=== PATIENT | female | born 1955 | race Caucasian/White ===

== ENCOUNTER → 2017-05-26 | Outpatient (CLI) | payer BC ==
--- NOTE | 2017-05-26 07:57 | US ---
EXAMINATION TYPE: US abdomen complete DATE OF EXAM: 05/26/2017 COMPARISON: NONE CLINICAL HISTORY: K83.8 Biliary Dyskinesia. Patient states getting lots of heartburn and epigastric p ain. Can be brought upon with acidic or greasy foods. NPO. EXAM MEASUREMENTS: Liver Length: 14.3 cm Gallbladder Wall: 0.2 cm 0. CBD: 0.6 cm CHD: 0.3 cm Spleen: 9.6 cm Right Kidney: 9.1 x 3.7 x 3.7 cm Left Kidney: 8.5 x 4.5 x 4.9 cm Pancreas: appears echogenic Liver: wnl Gallbladder: wnl, fold seen Evidence for sonographic Canales's sign: neg CBD: wnl CHD: wnl Spleen: wnl Right Kidney: wnl Left Kidney: wnl Upper IVC: wnl Abd Aorta: No AAA identified IMPRESSION: 1. Normal abdomen ultrasound
--- NOTE | 2017-05-26 13:36 | MM ---
Reason for exam: screening (asymptomatic). Last mammogram was performed 2 years and 6 months ago. History: Patient is postmenopausal. Physical Findings: A clinical breast exam by your physician is recommended on an annual basis and results should be correlated with mammographic findings. MG Screening Mammo w CAD Bilateral CC and MLO view(s) were taken. Prior study comparison: November 15, 2014, bilateral MG screening mammo w CAD. There are scattered fibroglandular densities. Finding: There are typically benign calcifications in the right breast. No significant changes in finding since November 15, 2014. ASSESSMENT: Benign, BI-RAD 2 RECOMMENDATION: Routine screening mammogram of both breasts in 1 year.
== END | disposition home or self-care (01) ==
LOC: RADUSWWP 06:56
PROVIDERS: ATTEND Family Medicine
DX: Z12.31 Encounter for screening mammogram for malignant neoplasm of breast (principal); K83.8 Other specified diseases of biliary tract
CPT/HCPCS: 76700; G0202

== ENCOUNTER → 2017-10-21 | Outpatient (CLI) | payer BC ==
--- NOTE | 2017-10-21 15:24 | NM ---
EXAMINATION TYPE: NM hepatobiliary w EF DATE OF EXAM: 10/21/2017 COMPARISON: EXAMINATION TYPE: NM hepatobiliary w EF DATE OF EXAM: 10/21/2017 COMPARISON: NONE HISTORY: Pain TECHNIQUE: After the intravenous administration of 5.13 mCi Tc 99m Mebrofenin hepatobiliary scintigra phy is performed. Immediate images post injection. FINDINGS: There is satisfactory initial accumulation of tracer by the liver. The gallbladder is visualized wit hin 10 minutes. The small bowel activity is noted within 20 minutes. At one hour 8 ounces of oral e nsure plus is given to mimic CCK and gallbladder ejection fraction is calculated at 74 %, in the norm al range. Therefore there is no scintigraphic evidence of cystic or common bile duct obstruction to suggest acute cholecystitis or gallbladder dyskinesia. IMPRESSION: Exam is within normal limits.
== END | disposition home or self-care (01) ==
LOC: RADNMMAIN 12:45
PROVIDERS: ATTEND Physician Assistant Medical
DX: R10.11 Right upper quadrant pain (principal); R10.13 Epigastric pain; K21.9 Gastro-esophageal reflux disease without esophagitis
CPT/HCPCS: 78226; A9537

== ENCOUNTER → 2017-11-11 | Outpatient (CLI) | payer BC ==
--- NOTE | 2017-11-11 13:50 | CT ---
EXAMINATION TYPE: CT abdomen w con DATE OF EXAM: 11/11/2017 COMPARISON: NONE HISTORY: 62-year-old female Upper abdominal pain TECHNIQUE: Contiguous axial scanning of the abdomen and pelvis following administration of 100 ml Omn ipaque 300 IV contrast. Delayed images through the kidneys and coronal/sagittal reconstructions perf ormed. CT DLP: 426.40 mGycm Automated exposure control for dose reduction was used. FINDINGS: Heart is normal size without pericardial effusion. Lung bases clear without pleural effusion. Tiny hiatal hernia. No focal liver lesion or biliary ductal dilatation. Portal venous system is patent. Gallbladder, adrenal glands, kidneys, spleen with hilar splenule, and pancreas appear within normal l imits. Tiny fatty umbilical hernia. Mild atherosclerotic calcifications within the infrarenal abdominal aorta and iliac arteries. No aneu rysm. No mesenteric or retroperitoneal lymphadenopathy. No dilated small bowel, free fluid, or free air. Oral contrast has progressed to the hepatic flexure. There is scattered mild stool. No pericolonic in flammatory change. Pelvis not imaged. Bones: Facet arthropathy mid to lower lumbar spine with grade 1 anterolisthesis at L3-L4 and grade 1 retrolisthesis at L1-L2. No osseous destructive process. IMPRESSION: NO ACUTE INFLAMMATORY PROCESS IDENTIFIED IN THE ABDOMEN TO EXPLAIN THE PATIENT'S SYMPTOMS. TINY HIATAL HERNIA.
== END | disposition home or self-care (01) ==
LOC: RADCTMAIN 12:16
PROVIDERS: ATTEND Family Medicine
DX: R10.10 Upper abdominal pain, unspecified (principal); K44.9 Diaphragmatic hernia without obstruction or gangrene
CPT/HCPCS: 74160; Q9967

== ENCOUNTER 2018-02-28 03:44 | Emergency (ER) | payer BC ==
--- NOTE | 2018-02-28 03:47 | ED ---
General Adult HPI - General Stated complaint: abd pain Time Seen by Provider: 02/28/18 03:47 - History of Present Illness Initial comments: Nettie is a 62-year-old female with a past medical history significant for chronic abdominal pain for which she's been following with gastroenterology. Patient presents to the emergency department today for evaluation of significant severe worsening of her abdominal pain. Patient reports that she was in her usual state of health throughout the day yesterday. She reports she ate a sandwich for dinner and went to bed pain free. She woke around 2 AM with a severe stabbing epigastric abdominal pain which she describes as a severe pain with bandlike distribution around her epigastrium. Patient reports this pain is similar to pain she's experienced in the past but noted to be about 10 times worse. She denies any fevers, chills, nausea, vomiting, chest pain, palpitations or shortness of breath. She reports that her last bowel movement was about the time she woke up and was noted to be loose but this is not atypical for her. Patient reports that her workup thus far has included CT scans, ultrasounds, MRI and multiple sets of labs which have identified no cause of her abdominal pain. She is currently on Hycosin mean but no other medications. She does note that she was told she has a hiatal hernia but no other acute pathology. - Related Data Home Medications Medication Instructions Recorded Confirmed Aspirin 81 mg PO DAILY 12/26/13 12/26/13 Ergocalciferol [Vitamin D2 50,000 unit PO WEEKLY 12/26/13 12/26/13 (DRISDOL)] Fish Oil/Dha/Epa [Fish Oil 1,200 1 tab PO DAILY 12/26/13 12/26/13 mg Fish Oil] Isosorbide Mononitrate [Imdur] 15 mg PO DAILY 12/26/13 12/26/13 Multivitamin [Children's 1 tab PO DAILY 12/26/13 12/26/13 Multivitamins] Niacin [Niacin ER] 1,000 mg PO DAILY 12/26/13 12/26/13 Ramipril [Altace] 5 mg PO DAILY 12/26/13 12/26/13 Simvastatin [Zocor] 20 mg PO HS 12/26/13 12/26/13 Allergies Allergy/AdvReac Type Severity Reaction Status Date / Time fentanyl citrate Allergy Rash/Hives Verified 02/28/18 03:50 [From Sublimaze (PF)] phenobarbital [From Luminal] Allergy Rash/Hives Verified 02/28/18 03:50 phenobarbital sodium Allergy Rash/Hives Verified 02/28/18 03:50 [From Luminal] Review of Systems ROS Statement: Those systems with pertinent positive or pertinent negative responses have been documented in the HPI. ROS Other: All systems not noted in ROS Statement are negative. Past Medical History Past Medical History: Hyperlipidemia, Hypertension, Osteoarthritis (OA) History of Any Multi-Drug Resistant Organisms: None Reported Past Surgical History: Appendectomy, Section, Heart Catheterization, Tonsillectomy Additional Past Surgical History / Comment(s): rt knee lateral release, nasal sx for deviated septum. Past Anesthesia/Blood Transfusion Reactions: Previous Problems w/ Anesthesia, Motion Sickness Additional Past Anesthesia/Blood Transfusion Reaction / Comment(s): luminal and sublimase causes hives Past Psychological History: No Psychological Hx Reported Smoking Status: Current every day smoker Past Alcohol Use History: None Reported Past Drug Use History: None Reported General Exam Limitations: no limitations General appearance: alert, other (Appears uncomfortable) Head exam: Present: atraumatic, normocephalic Eye exam: Present: normal appearance, PERRL ENT exam: Present: normal exam Neck exam: Present: normal inspection Respiratory exam: Absent: respiratory distress Cardiovascular Exam: Present: regular rate, normal rhythm GI/Abdominal exam: Present: soft, tenderness, normal bowel sounds. Absent: distended, guarding, rebound, rigid, diminished bowel sounds, hyperactive bowel sounds, hypoactive bowel sounds, organomegaly, mass, pulsatile mass, hernia Rectal exam: Present: deferred Neurological exam: Present: alert, oriented X3 Psychiatric exam: Present: agitated Skin exam: Present: warm, dry Course Vital Signs 02/28/18 02/28/18 03:46 06:13 Temperature 97.6 F Pulse Rate 77 75 Respiratory 18 16 Rate Blood Pressure 133/85 130/63 O2 Sat by Pulse 99 98 Oximetry - Reevaluation(s) Reevaluation #1: She reevaluated, patient declined to take the GI cocktail she states that she cannot take any liquid medications because they make her vomit. Patient states that she is followed with her GI and declined to take any oral medications due to her inability take liquid medications. 02/28/18 05:40 Medical Decision Making - Medical Decision Making She was seen and evaluated, history was obtained from the patient and her at bedside Patient with recurrent chronic abdominal pain labs and imaging were ordered She does have a history of hypertension, hyperlipidemia, cigarette smoking. No known cardiac disease. Heart score is 2 for age and risk factors Troponins and EKG were ordered in addition to evaluation of abdominal pain Patient refused GI cocktail stating that she cannot take liquid medications IV morphine was ordered for the patient's discomfort Labs were unremarkable KUB x-ray is no acute pathology Results were discussed with the patient who expresses some frustration but also states she is relieved is no acute pathology. She states she wishes we could find something and fix it. I advised the patient that follow up with gastroenterology for endoscopy is the appropriate next step. Assessment patient the possibility of gastritis or gastric ulcers. Advised her to maintain a bland diet, take medications as prescribed, I encouraged her to try Carafate however she again insisted that she cannot drink medications. At this time there is no acute pathology I do not feel the patient has any acute medical emergencies and is stable for discharge home. - Lab Data Result diagrams: 02/28/18 04:21 02/28/18 04:21 Lab Results 02/28/18 02/28/18 02/28/18 Range/Units 04:21 04:21 04:21 WBC 10.1 (3.8-10.6) k/uL RBC 4.22 (3.80-5.40) m/uL Hgb 13.4 (11.4-16.0) gm/dL Hct 40.7 (34.0-46.0) % MCV 96.3 (80.0-100.0) fL MCH 31.6 (25.0-35.0) pg MCHC 32.8 (31.0-37.0) g/dL RDW 13.0 (11.5-15.5) % Plt Count 189 (150-450) k/uL Neutrophils % 72 % Lymphocytes % 19 % Monocytes % 6 % Eosinophils % 3 % Basophils % 1 % Neutrophils # 7.3 (1.3-7.7) k/uL Lymphocytes # 1.9 (1.0-4.8) k/uL Monocytes # 0.6 (0-1.0) k/uL Eosinophils # 0.3 (0-0.7) k/uL Basophils # 0.1 (0-0.2) k/uL Sodium 141 (137-145) mmol/L Potassium 3.9 (3.5-5.1) mmol/L Chloride 106 (98-107) mmol/L Carbon Dioxide 28 (22-30) mmol/L Anion Gap 7 mmol/L BUN 13 (7-17) mg/dL Creatinine 0.92 (0.52-1.04) mg/dL Est GFR (CKD-EPI)AfAm 79 (>60 ml/min/1.73 sqM) Est GFR (CKD-EPI)NonAf 68 (>60 ml/min/1.73 sqM) Glucose 133 H (74-99) mg/dL Calcium 9.2 (8.4-10.2) mg/dL Total Bilirubin 0.3 (0.2-1.3) mg/dL AST 23 (14-36) U/L ALT 22 (9-52) U/L Alkaline Phosphatase 62 (38-126) U/L Troponin I <0.012 (0.000-0.034) ng/mL Total Protein 6.5 (6.3-8.2) g/dL Albumin 4.1 (3.5-5.0) g/dL Lipase 62 (23-300) U/L Urine Color Urine Appearance (Clear) Urine pH (5.0-8.0) Ur Specific [place] (1.001-1.035) Urine Protein (Negative) Urine Glucose (UA) (Negative) Urine Ketones (Negative) Urine Blood (Negative) Urine Nitrite (Negative) Urine Bilirubin (Negative) Urine Urobilinogen (<2.0) mg/dL Ur Leukocyte Esterase (Negative) Urine RBC (0-5) /hpf Urine WBC (0-5) /hpf Ur Squamous Epith Cells (0-4) /hpf Urine Bacteria (None) /hpf Hyaline Casts (0-2) /lpf Urine Mucus (None) /hpf 02/28/18 Range/Units 04:21 WBC (3.8-10.6) k/uL RBC (3.80-5.40) m/uL Hgb (11.4-16.0) gm/dL Hct (34.0-46.0) % MCV (80.0-100.0) fL MCH (25.0-35.0) pg MCHC (31.0-37.0) g/dL RDW (11.5-15.5) % Plt Count (150-450) k/uL Neutrophils % % Lymphocytes % % Monocytes % % Eosinophils % % Basophils % % Neutrophils # (1.3-7.7) k/uL Lymphocytes # (1.0-4.8) k/uL Monocytes # (0-1.0) k/uL Eosinophils # (0-0.7) k/uL Basophils # (0-0.2) k/uL Sodium (137-145) mmol/L Potassium (3.5-5.1) mmol/L Chloride (98-107) mmol/L Carbon Dioxide (22-30) mmol/L Anion Gap mmol/L BUN (7-17) mg/dL Creatinine (0.52-1.04) mg/dL Est GFR (CKD-EPI)AfAm (>60 ml/min/1.73 sqM) Est GFR (CKD-EPI)NonAf (>60 ml/min/1.73 sqM) Glucose (74-99) mg/dL Calcium (8.4-10.2) mg/dL Total Bilirubin (0.2-1.3) mg/dL AST (14-36) U/L ALT (9-52) U/L Alkaline Phosphatase (38-126) U/L Troponin I (0.000-0.034) ng/mL Total Protein (6.3-8.2) g/dL Albumin (3.5-5.0) g/dL Lipase (23-300) U/L Urine Color Yellow Urine Appearance Clear (Clear) Urine pH 5.0 (5.0-8.0) Ur Specific [place] 1.014 (1.001-1.035) Urine Protein Negative (Negative) Urine Glucose (UA) Negative (Negative) Urine Ketones Negative (Negative) Urine Blood Small H (Negative) Urine Nitrite Negative (Negative) Urine Bilirubin Negative (Negative) Urine Urobilinogen 2.0 (<2.0) mg/dL Ur Leukocyte Esterase Small H (Negative) Urine RBC 3 (0-5) /hpf Urine WBC 4 (0-5) /hpf Ur Squamous Epith Cells 2 (0-4) /hpf Urine Bacteria Rare H (None) /hpf Hyaline Casts 1 (0-2) /lpf Urine Mucus Rare H (None) /hpf Disposition Clinical Impression: Abdominal pain Disposition: HOME SELF-CARE Condition: Fair Instructions: Abdominal Pain (ED) Is patient prescribed a controlled substance at d/c from ED?: No Referrals: Phuc Brewster DO [Primary Care Provider] - 1-2 days Time of Disposition: 06:05
[2018-02-28 03:50] VITALS: TEMP 97.6
[2018-02-28] MEDS ORDERED: SODIUM CHLORIDE 0.9% 1,000 ML IV STA (03:53)
[2018-02-28] MEDS ORDERED: MAG HYDROX/AL HYDROX/SIMETH 30 ML CUP PO PRN (03:54)
[2018-02-28] MEDS ORDERED: LIDOCAINE VISCOUS 2% 15 ML CUP MUCOUS MEM ONE (03:54)
[2018-02-28] MEDS: MAG HYDROX/AL HYDROX/SIMETH 30 ML, HYOSCYAMINE ELIXIR 10 ML, CIMETIDINE HCL 300 MG, LID... PO STA ×8 (04:22→04:25)
[2018-02-28 04:36] LABS: Basophils # (A) 0.1 k/uL (0-0.2); Basophils % (A) 1 %; Eosinophils # (A) 0.3 k/uL (0-0.7); Eosinophils % (A) 3 %; HCT 40.7 % (34.0-46.0); HGB 13.4 gm/dL (11.4-16.0); Lymphocytes # (A) 1.9 k/uL (1.0-4.8); Lymphocytes % (A) 19 %; MCH 31.6 pg (25.0-35.0); MCHC 32.8 g/dL (31.0-37.0); MCV 96.3 fL (80.0-100.0); Mean Platelet Volume 7.8; Monocytes # (A) 0.6 k/uL (0-1.0); Monocytes % (A) 6 %; Neutrophils # (A) 7.3 k/uL (1.3-7.7); Neutrophils % (A) 72 %; Platelet Count 189 k/uL (150-450); RBC 4.22 m/uL (3.80-5.40); WBC 10.1 k/uL (3.8-10.6)
[2018-02-28 04:38] LABS: Appearance,Urine Clear (Clear); Bacteria,Urine Rare /hpf; Bilirubin,Urine Negative (Negative); Blood,Urine Small (Negative); Color,Urine Yellow; Glucose,Urine (UA) Negative (Negative); Hyaline Casts,Urine 1 /lpf (0-2); Ketones,Urine Negative (Negative); Leukocyte Esterase,Urine Small (Negative); Mucus,Urine Rare /hpf; Nitrite,Urine Negative (Negative); Protein,Urine Negative (Negative); RBC,Urine 3 /hpf (0-5); Specific Gravity,Urine 1.014 (1.001-1.035); Squamous Epithelial Cell,Urine 2 /hpf (0-4); WBC,Urine 4 /hpf (0-5)
[2018-02-28 04:43] LABS: Albumin 4.1 g/dL (3.5-5.0); Calcium 9.2 mg/dL (8.4-10.2); Potassium 3.9 mmol/L (3.5-5.1); Total Bilirubin 0.3 mg/dL (0.2-1.3); Total Protein 6.5 g/dL (6.3-8.2)
[2018-02-28] MEDS ORDERED: MORPHINE SULFATE 4 MG/ML SYRINGE IVP STA (05:39)
--- NOTE | 2018-02-28 05:56 | XR ---
EXAMINATION TYPE: XR KUB DATE OF EXAM: 02/28/2018 COMPARISON: 03/27/2009 HISTORY: Abdominal pain TECHNIQUE: 2 upright views FINDINGS: There is no sign of intestinal obstruction or pneumoperitoneum. Fecal pattern is normal. Th ere is no sign of a mass. There are small linear density at the left lung base. There are no patholog ic calcifications over the kidneys. IMPRESSION: Nonacute abdomen. New mild subsegmental atelectasis at the left lung base compared to old exam.
[2018-02-28 06:13] VITALS: BP 130/63; PULSE 75; RESP 16
== END 2018-02-28 06:16 | disposition home or self-care (01) ==
LOC: EC 03:44
DX: R10.13 Epigastric pain (principal); E78.5 Hyperlipidemia, unspecified; I10 Essential (primary) hypertension; M19.90 Unspecified osteoarthritis, unspecified site; F17.210 Nicotine dependence, cigarettes, uncomplicated; Z90.49 Acquired absence of other specified parts of digestive tract; Z95.5 Presence of coronary angioplasty implant and graft; Z88.5 Allergy status to narcotic agent; Z88.8 Allergy status to other drugs, medicaments and biological substances; Z79.82 Long term (current) use of aspirin; Z79.899 Other long term (current) drug therapy
CPT/HCPCS: 99284; 96374; 96361; 36415; 80053; 83690; 84484; 85025; 81001; 74018; J2270

== ENCOUNTER 2018-02-28 08:55 | Emergency (ER) | payer BC ==
[2018-02-28] MEDS ORDERED: MAG HYDROX/AL HYDROX/SIMETH 30 ML, HYOSCYAMINE ELIXIR 10 ML, CIMETIDINE HCL 300 MG, LID... PO STA ×4 (09:14)
--- NOTE | 2018-02-28 09:18 | ED ---
Abdominal Pain HPI - General Chief Complaint: Abdominal Pain Stated Complaint: Abd.pain Time Seen by Provider: 02/28/18 09:01 Source: patient, RN notes reviewed Mode of arrival: EMS Limitations: no limitations - History of Present Illness Initial Comments: This is a 62-year-old female who presents to the emergency department with chief complaint of epigastric abdominal pain. Patient reports chronic epigastric abdominal pain for the past 6 months. Patient was discharged from this emergency department approximately 3 hours ago. She states that when she returned home her epigastric pain returned and it worsened. She states she believed it worsens because she became nauseous and vomited. Patient states she believes it is from the morphine to received at her previous visit. Patient states that she has had ultrasounds, CT scans and MRIs of the abdomen and no pathology step and found. She states that she has an endoscopy scheduled with a sterile tech next month. GI cocktail was recommended at previous visit and patient refused, stating that she cannot take liquid medications. Denies fevers or chills, chest pain or shortness of breath, diarrhea or constipation, dysuria or hematuria. Laboratory studies and EKG were obtained at previous visit and no significant abnormalities were found. - Related Data Home Medications Medication Instructions Recorded Confirmed Aspirin 81 mg PO DAILY 12/26/13 02/28/18 Simvastatin [Zocor] 20 mg PO HS 12/26/13 02/28/18 Hyoscyamine Sulfate [Levbid] 0.375 mg PO AC-BID 02/28/18 02/28/18 Lisinopril [Zestril] 5 mg PO DAILY 02/28/18 02/28/18 Previous Rx's Medication Instructions Recorded Omeprazole [PriLOSEC] 40 mg PO DAILY #14 capsule. 02/28/18 Allergies Allergy/AdvReac Type Severity Reaction Status Date / Time fentanyl citrate Allergy Rash/Hives Verified 02/28/18 09:45 [From Sublimaze (PF)] phenobarbital [From Luminal] Allergy Rash/Hives Verified 02/28/18 09:45 phenobarbital sodium Allergy Rash/Hives Verified 02/28/18 09:45 [From Luminal] Review of Systems ROS Statement: Those systems with pertinent positive or pertinent negative responses have been documented in the HPI. ROS Other: All systems not noted in ROS Statement are negative. Past Medical History Past Medical History: Hyperlipidemia, Hypertension, Osteoarthritis (OA) History of Any Multi-Drug Resistant Organisms: None Reported Past Surgical History: Appendectomy, Section, Heart Catheterization, Tonsillectomy Additional Past Surgical History / Comment(s): rt knee lateral release, nasal sx for deviated septum. Past Anesthesia/Blood Transfusion Reactions: Previous Problems w/ Anesthesia, Motion Sickness Additional Past Anesthesia/Blood Transfusion Reaction / Comment(s): luminal and sublimase causes hives Past Psychological History: No Psychological Hx Reported Smoking Status: Current every day smoker Past Alcohol Use History: None Reported Past Drug Use History: None Reported General Exam - General Exam Comments Initial Comments: General: Awake and alert, well-developed; in mild distress due to pain. HEENT: Head atraumatic, normocephalic. Pupils are equal, round and reactive to light. Extraocular movements intact. Oropharynx moist without erythema or exudate. Neck: Supple. Normal ROM. Cardiovascular: Regular rate and rhythm. No murmurs, rubs or gallops. Chest symmetrical. Respiratory: Lungs clear to auscultation bilaterally. No wheezes, rales or rhonchi. Normal respiratory effort with no use of accessory muscles. Abdomen: Soft, non-distended. Tenderness on palpation of epigastrium with guarding. No rigidity or rebound. Normal bowel sounds in all 4 quadrants. Musculoskeletal: Normal ROM, no tenderness bilateral upper and lower extremities. Skin: [place], warm and dry without rashes or lesions. Neurological: Alert and oriented x3. CN II-XII grossly intact. Speech is fluent and answers are appropriate. No focal neuro deficits. Limitations: no limitations Course Vital Signs 02/28/18 02/28/18 02/28/18 08:57 10:28 12:06 Temperature 97.5 F L 98.7 F 97.9 F Pulse Rate 51 L 50 L 65 Respiratory 20 18 18 Rate Blood Pressure 175/80 136/67 178/77 O2 Sat by Pulse 100 98 99 Oximetry Medical Decision Making - Medical Decision Making This is a 62-year-old female who presents to the emergency department with chief complaint of abdominal pain. Patient reports chronic epigastric abdominal pain. She has undergone multiple studies and has seen gastroenterology and no pathology has been found. She states she is scheduled for endoscopy next month with Dr. Rodríguez. Patient was discharged from the emergency department earlier this morning after workup revealed no acute findings. Patient returned home and the pain returned. At the time, Dr. Gould recommended GI cocktail however patient refused. Patient was able to drink the GI cocktail at this visit and reports improvement in her symptoms. Case was discussed with attending physician, Dr. Menard who recommended repeating labs and getting a repeat troponin. CBC and CMP were unremarkable. Potassium was slightly elevated at 5.7, however sample was hemolyzed. Troponin is 0.013. EKG was obtained and compared to previous EKG in December 2013. Inverted T waves in V1 and V2 present on both EKGs. New T wave inversion in lead III. No other significant changes noted. Recommended admission for observation and serial troponins, however patient refuses. She states that she wants to be discharged home. She will be given Zofran and a prescription for omeprazole. Recommended following up with her primary care physician within 1-2 days. Recommended following up with gastroenterology. Patient has had stable vital signs and is in no acute distress. She will be discharged home at this time. She is in agreement and voices understanding. All questions answered. - Lab Data Result diagrams: 02/28/18 10:51 02/28/18 10:51 Lab Results 02/28/18 02/28/18 02/28/18 Range/Units 10:51 10:51 10:51 WBC 12.9 H (3.8-10.6) k/uL RBC 3.94 (3.80-5.40) m/uL Hgb 12.8 (11.4-16.0) gm/dL Hct 38.2 (34.0-46.0) % MCV 97.0 (80.0-100.0) fL MCH 32.5 (25.0-35.0) pg MCHC 33.5 (31.0-37.0) g/dL RDW 13.0 (11.5-15.5) % Plt Count 171 (150-450) k/uL Neutrophils % 90 % Lymphocytes % 5 % Monocytes % 3 % Eosinophils % 1 % Basophils % 0 % Neutrophils # 11.6 H (1.3-7.7) k/uL Lymphocytes # 0.6 L (1.0-4.8) k/uL Monocytes # 0.4 (0-1.0) k/uL Eosinophils # 0.2 (0-0.7) k/uL Basophils # 0.0 (0-0.2) k/uL Sodium 140 (137-145) mmol/L Potassium 5.7 H (3.5-5.1) mmol/L Chloride 107 (98-107) mmol/L Carbon Dioxide 23 (22-30) mmol/L Anion Gap 10 mmol/L BUN 11 (7-17) mg/dL Creatinine 0.74 (0.52-1.04) mg/dL Est GFR (CKD-EPI)AfAm >90 (>60 ml/min/1.73 sqM) Est GFR (CKD-EPI)NonAf 89 (>60 ml/min/1.73 sqM) Glucose 120 H (74-99) mg/dL Calcium 8.8 (8.4-10.2) mg/dL Magnesium 1.8 (1.6-2.3) mg/dL Total Bilirubin 1.1 (0.2-1.3) mg/dL AST 39 H (14-36) U/L ALT 19 (9-52) U/L Alkaline Phosphatase 54 (38-126) U/L Troponin I 0.013 (0.000-0.034) ng/mL Total Protein 7.0 (6.3-8.2) g/dL Albumin 4.3 (3.5-5.0) g/dL - EKG Data EKG Comments: Plan: 23:19. Sinus bradycardia. Possible left atrial enlargement. RSR' or QR pattern in V1 suggests right ventricular conduction delay. Borderline ECG. Ventricular rate 48 bpm, CO interval 162, QRS duration 94, QT/QTc 490/437 Disposition Clinical Impression: Abdominal pain Disposition: HOME SELF-CARE Condition: Good Instructions: Ondansetron (By mouth), Abdominal Pain (ED) Additional Instructions: Please take medications as prescribed. Please follow up with gastroenterology within 1-2 days. Please follow up with primary care provider within 1-2 days. Return to emergency department if symptoms should worsen or any concerns arise. Prescriptions: Omeprazole [PriLOSEC] 40 mg PO DAILY #14 capsule.dr Is patient prescribed a controlled substance at d/c from ED?: No Referrals: Phuc Brewster DO [Primary Care Provider] - 1-2 days Time of Disposition: 11:57
[2018-02-28 10:29] VITALS: RESP 18
[2018-02-28 11:09] LABS: Basophils % (A) 0 %; Eosinophils # (A) 0.2 k/uL (0-0.7); Eosinophils % (A) 1 %; HCT 38.2 % (34.0-46.0); HGB 12.8 gm/dL (11.4-16.0); Lymphocytes # (A) 0.6 k/uL (1.0-4.8); Lymphocytes % (A) 5 %; MCH 32.5 pg (25.0-35.0); MCHC 33.5 g/dL (31.0-37.0); Mean Platelet Volume 8.7; Monocytes # (A) 0.4 k/uL (0-1.0); Monocytes % (A) 3 %; Neutrophils # (A) 11.6 k/uL (1.3-7.7); Neutrophils % (A) 90 %; Platelet Count 171 k/uL (150-450); RBC 3.94 m/uL (3.80-5.40); WBC 12.9 k/uL (3.8-10.6)
[2018-02-28 11:22] LABS: ALT 19 U/L (9-52); AST 39 U/L (14-36); Albumin 4.3 g/dL (3.5-5.0); Alkaline Phosphatase 54 U/L (38-126); Anion Gap 10 mmol/L; Calcium 8.8 mg/dL (8.4-10.2); Carbon Dioxide 23 mmol/L (22-30); Chloride 107 mmol/L (98-107); Glucose 120 mg/dL (74-99); Magnesium 1.8 mg/dL (1.6-2.3); Sodium 140 mmol/L (137-145); Total Bilirubin 1.1 mg/dL (0.2-1.3)
[2018-02-28 11:26] LABS: Blood Urea Nitrogen 11 mg/dL (7-17); Potassium 5.7 mmol/L (3.5-5.1)
[2018-02-28] MEDS ORDERED: ONDANSETRON 4 MG ODT STARTER PACK 2 TAB BTL PO STA (11:55)
[2018-02-28] MEDS ORDERED: ONDANSETRON 4 MG/2 ML VIAL IVP STA (11:55)
[2018-02-28 12:07] VITALS: BP 178/77; PULSE 65; TEMP 97.9
== END 2018-02-28 12:07 | disposition home or self-care (01) ==
LOC: EC 08:55
DX: R10.13 Epigastric pain (principal); R11.2 Nausea with vomiting, unspecified; E78.5 Hyperlipidemia, unspecified; I10 Essential (primary) hypertension; M19.90 Unspecified osteoarthritis, unspecified site; F17.200 Nicotine dependence, unspecified, uncomplicated; Z79.82 Long term (current) use of aspirin; Z79.899 Other long term (current) drug therapy; Z88.5 Allergy status to narcotic agent; Z88.8 Allergy status to other drugs, medicaments and biological substances; Z95.818 Presence of other cardiac implants and grafts; Z90.49 Acquired absence of other specified parts of digestive tract
CPT/HCPCS: 36415; 93005; 80053; 83735; 84484; 85025; 99284; 96374; J2405; S0119

== ENCOUNTER 2018-03-14 10:33 | Day surgery (SDC) | payer BC ==
[2018-03-13 09:13] VITALS: BMI 24.7
[~2018-03-14 10:33] MED LIST: LACTATED RINGERS 1,000 ML IV SCH
[2018-03-14 11:17] VITALS: RESP 16; TEMP 97.9
[2018-03-14] MEDS ORDERED: LIDOCAINE 1% 20 ML VIAL (10MG/ML) FOR IV START INTRADERMA ONE (11:17)
[2018-03-14] MEDS ORDERED: PROPOFOL 10 MG/ML 20 ML VIAL IV ONE (11:45)
--- NOTE | 2018-03-14 12:23 | P.PCN ---
Date of Procedure: 03/14/18 Procedure(s) Performed: Procedure: Esophagogastroduodenoscopy and biopsy. Preoperative diagnosis: Epigastric pain. Postoperative diagnosis: 1. Small sliding hiatal hernia with no obvious esophagitis or complicated reflux disease. 2. Mild antral gastritis. 3. Multiple biopsies obtained from the duodenum, antrum and esophagus. Preparation and sedation: Was provided by anesthesia. Brief clinical history: The patient is a 62-year-old female who I have evaluated in December of this year and again last month for upper abdominal discomfort with no precipitating or relieving factors. She had an ultrasound, computed tomography scan and HIDA scan which were negative. Acid suppressive therapy for a month was not helpful. Anti-spasmodics did not help her either. She has no other alarm symptoms. This evaluation is to assess for peptic ulcer disease, complicated reflux disease or other pathology. Procedure: With the patient on her left lateral decubitus position and after informed consent and adequate sedation, I passed the Olympus-GIF 160 video upper endoscope through the cricopharyngeus down the esophagus. GE junction was around 36 cm from the incisors and there was a small sliding hiatal hernia but no obvious esophagitis or complicated reflux disease. The endoscope was then passed into the stomach which was insufflated with air and inspected in detail including the retroflex view in the cardia. There was some mottling and erythema in the antrum but no ulcers or erosions. Pyloric channel, duodenal bulb, post bulbar area and descending duodenum appeared within normal limits. I obtained multiple biopsies from the duodenum, antrum and esophagus then the endoscope was withdrawn. The patient tolerated the procedure well. Plan: The patient was reassured. Will await pathology results and make further plans based on her course and biopsy results. I will keep you updated on her progress.
[2018-03-14 12:55] VITALS: BP 149/80; PULSE 47
== END 2018-03-14 13:16 | disposition home or self-care (01) ==
LOC: ORWHC2ENDO 10:33
DX: K29.50 Unspecified chronic gastritis without bleeding (principal); K20.9 Esophagitis, unspecified; K44.9 Diaphragmatic hernia without obstruction or gangrene; M19.90 Unspecified osteoarthritis, unspecified site; I10 Essential (primary) hypertension; I45.10 Unspecified right bundle-branch block; E78.5 Hyperlipidemia, unspecified; F17.210 Nicotine dependence, cigarettes, uncomplicated; Z88.5 Allergy status to narcotic agent; Z88.8 Allergy status to other drugs, medicaments and biological substances; Z79.82 Long term (current) use of aspirin; Z79.899 Other long term (current) drug therapy
CPT/HCPCS: 43239; 88305; J2704

== ENCOUNTER → 2018-06-28 | Outpatient (CLI) | payer BC ==
--- NOTE | 2018-07-03 12:13 | MM ---
Reason for exam: screening (asymptomatic). Last mammogram was performed 1 year and 1 month ago. History: Patient is postmenopausal. Family history of breast cancer in paternal aunt. Physical Findings: A clinical breast exam by your physician is recommended on an annual basis and results should be correlated with mammographic findings. MG 3D Screening Mammo W/Cad Bilateral CC and MLO view(s) were taken. Prior study comparison: May 26, 2017, bilateral MG screening mammo w CAD. November 15, 2014, bilateral MG screening mammo w CAD. There are scattered fibroglandular densities. No significant changes when compared with prior studies. ASSESSMENT: Benign, BI-RAD 2 RECOMMENDATION: Routine screening mammogram of both breasts in 1 year.
== END | disposition home or self-care (01) ==
LOC: RADMAMWWP 07:29
PROVIDERS: ATTEND Family Medicine
DX: Z12.31 Encounter for screening mammogram for malignant neoplasm of breast (principal)
CPT/HCPCS: 77063; 77067

== ENCOUNTER → 2018-09-04 | Outpatient (CLI) | payer BC ==
--- NOTE | 2018-09-04 15:18 | BD ---
EXAMINATION TYPE: Axial Bone Density DATE OF EXAM: 09/04/2018 COMPARISON: NONE CLINICAL HISTORY: Height: 61.5 Weight: 154.4 FRAX RISK QUESTIONS: Alcohol (3 or more units per day): no Family History (Parent hip fracture): no Glucocorticoids (More than 3mos): no (Ex: prednisone, prednisolone, methylprednisolone, dexamethasone, and hydrocortisone). History of Fracture in Adulthood: no Secondary Osteoporosis: 1. Type 1 Diabetes: no 2. Hyperthyroidism: no 3. Menopause before 45: no 4. Malnutrition: no 5. Chronic liver disease: no Rheumatoid Arthritis: no Current Tobacco Use: yes RISK FACTORS HISTORY OF: Family History of Osteoporosis: no Active: yes Diet low in dairy products/other sources of calcium: no Postmenopausal woman: 48 Lost more than 2 inches in height since high school: no MEDICATIONS: blood pressure, cholesterol meds, vit d, aspirin Additional History: EXAM MEASUREMENTS: Bone mineral densitometry was performed using the [employer] System. Bone mineral density as measured about the Lumbar spine is: ----- L1-L4(G/cm2): 1.349 T Score Values are as follows: ----- L2: 0.4 ----- L3: 1.8 ----- L4: 2.7 ----- L1-L4: 1.4 Bone mineral density -baseline Bone mineral density about the R hip (g/cm2): 0.836 Bone mineral density about the L hip (g/cm2): 0.803 T Score values are as follows: -----R Neck: -1.5 -----L Neck: -1.7 -----R Total: -1.4 -----L Total: -1.0 Bone mineral density : baseline IMPRESSION: Osteopenia NOTE: T-SCORE=SD OF THE YOUNG ADULT MEAN.
== END | disposition home or self-care (01) ==
LOC: RADBDWWP 12:29
PROVIDERS: ATTEND Family Medicine
DX: Z13.820 Encounter for screening for osteoporosis (principal); M85.80 Other specified disorders of bone density and structure, unspecified site; F17.200 Nicotine dependence, unspecified, uncomplicated
CPT/HCPCS: 77080

== ENCOUNTER → 2019-09-14 | Outpatient (CLI) | payer BC ==
--- NOTE | 2019-09-14 09:22 | CT ---
EXAMINATION TYPE: CT abdomen pelvis w con DATE OF EXAM: 09/14/2019 COMPARISON: 11/11/2017 HISTORY: Abdominal pain, Congenital hiatus hernia CT DLP: 1228 mGycm Automated exposure control for dose reduction was used. CONTRAST: CT scan of the abdomen pelvis is performed with IV Contrast, patient injected with 100 ml mL of Isovu e 300. FINDINGS- LUNG BASES- No significant abnormality is appreciated. Coronary artery calcification noted. LIVER/GB- No gross abnormality is appreciated. PANCREAS- No gross abnormality is seen. SPLEEN- No gross abnormality is seen. Accessory spleen noted. ADRENALS- No gross abnormality is seen. KIDNEYS/BLADDER- no hydronephrosis nephrolithiasis or renal mass. BOWEL-there is a small hiatal hernia. Portions of the colon are decompressed and limited in assessme nt. There is concern for colonic abnormality correlate with barium exam or direct visualization as cl inically warranted. LYMPH NODES- No greater than 1cm abdominal or pelvic lymph nodes areappreciated. OSSEOUS STRUCTURES- Facet arthropathy mid to lower lumbar spine with grade 1 anterolisthesis at L3-L 4 and grade 1 retrolisthesis at L1-L2. No osseous destructive process. OTHER- small hiatal hernia noted. Small fat-containing periumbilical hernia. Soft tissue nodules in the adnexa likely represent normal-appearing ovaries . There is significant atherosclerotic change of the aorta. Suspect a significant stenosis involving the proximal left common iliac and distal left c ommon iliac artery. Correlate for claudication. IMPRESSION- 1. Small hiatal hernia. Portions of the colon are decompressed and limited in assessment. There is co ncern for colonic abnormality correlate with barium exam or direct visualization as clinically michael richa. 2. Significant atherosclerotic change of the distal aorta with significant stenosis involving the lef t common iliac arteries suspected correlate for claudication.
== END | disposition home or self-care (01) ==
LOC: RADCTMAIN 07:10
PROVIDERS: ATTEND Family Medicine
DX: K44.9 Diaphragmatic hernia without obstruction or gangrene (principal)
CPT/HCPCS: 74177; Q9967

== ENCOUNTER → 2019-10-01 | Outpatient (CLI) | payer BC ==
--- NOTE | 2019-10-03 11:45 | P.ARTDOP ---
Arterial Doppler LOWER EXTREMITY ARTERIAL DOPPLER: DATE OF SERVICE: 10/01/2019 Reason for study: Abnormal CAT scan. Doppler waveforms: Multiphasic bilaterally throughout. Pulse volume recording: []. Pressure gradients: None. Ankle-brachial indices: Greater than 1 bilaterally. Toe brachial indices: 0.81 on the right, 0.81 on the left Impression: Normal study.
== END | disposition home or self-care (01) ==
LOC: RADUSWWP 13:03
PROVIDERS: ATTEND Family Medicine
DX: I73.9 Peripheral vascular disease, unspecified (principal)
CPT/HCPCS: 93922

== ENCOUNTER → 2021-06-17 | Outpatient (CLI) | payer BC ==
--- NOTE | 2021-06-17 12:39 | FL ---
EXAMINATION TYPE: FL barium swallow DATE OF EXAM: 06/17/2021 CLINICAL INDICATION: 66-year-old female K44.9 Diaphragmatic hernia w/o obstruction/gangrene. Patient with pain and tightening sensation around the abdomen. COMPARISON: CT 09/14/2019 Total Fluoroscopy Time: 2 minutes 32 seconds 50 images obtained. FINDINGS: The patient could not tolerate the thick barium. Single contrast technique utilized with thin barium. The swallowing mechanism is normal and hypopharyngeal anatomy is preserved. The cervical and thoracic portions have a normal course and caliber. Mild tertiary peristalsis is dem onstrated. There is some delay in clearance of contrast from the distal esophagus as well as occasion al episodes of intraesophageal reflux. Given limitations of single contrast technique, the mucosa is normal and no persistent filling defect is encountered. There is a tiny sliding hiatal hernia noted on the last few images. Gastroesophageal reflux is not id entified. IMPRESSION: 1. Single contrast technique utilized as the patient could not tolerate thick barium. 2. Mild age-related esophageal dysmotility. 3. Tiny sliding hiatal hernia. Gastroesophageal reflux was not visualized during the course of the ex am.
== END | disposition home or self-care (01) ==
LOC: RADUSWWP 09:43
PROVIDERS: ATTEND Surgery Plastic and Reconstructive Surgery
DX: K44.9 Diaphragmatic hernia without obstruction or gangrene (principal); K80.10 Calculus of gallbladder with chronic cholecystitis without obstruction; K22.89 Other specified disease of esophagus
CPT/HCPCS: 74220

== ENCOUNTER 2021-07-01 10:54 | Day surgery (SDC) | payer BC ==
[2021-06-30 14:39] VITALS: BMI 25.6
--- NOTE | 2021-07-01 07:53 | P.GSHP ---
History of Present Illness H&P Date: 07/01/21 CHIEF COMPLAINT: GERD HISTORY OF PRESENT ILLNESS: The patient is a 66-year-old female who presents reports gastroesophageal reflux disease. Upper endoscopy was offered for further evaluation and management. PAST MEDICAL HISTORY: Please see list. PAST SURGICAL HISTORY: Please see list. MEDICATIONS: Please see list. ALLERGIES: Please see list. SOCIAL HISTORY: No illicit drug use FAMILY HISTORY: No reports of Crohn disease or ulcerative colitis. REVIEW OF ORGAN SYSTEMS: CONSTITUTIONAL: No reports of fevers or chills. GI: Denies any blood in stools or constipation. PHYSICAL EXAM: VITAL SIGNS: Stable GENERAL: Well-developed and pleasant in no acute distress. HEENT: No scleral icterus. Extraocular movements grossly intact. Moist buccal mucosa. NECK: Supple without lymphadenopathy. CHEST: Unlabored respirations. Equal bilateral excursions. CARDIOVASCULAR: Regular rate and rhythm. Distal 2+ pulses. ABDOMEN: Soft, nondistended. MUSCULOSKELETAL: No clubbing, cyanosis, or edema. ASSESSMENT: 1. Gastroesophageal reflux disease PLAN: 1. Recommend proceeding with an upper endoscopy Past Medical History Past Medical History: Hyperlipidemia, Hypertension, Osteoarthritis (OA) Additional Past Medical History / Comment(s): Has severe abd. pain @ times. Dx. with a R Bundle Branch Block years ago. Dizzy spells @ times. History of Any Multi-Drug Resistant Organisms: None Reported Past Surgical History: Appendectomy, Section, Heart Catheterization, Tonsillectomy Additional Past Surgical History / Comment(s): rt knee lateral release, nasal sx for deviated septum. EGD, COLONOSCOPY Past Anesthesia/Blood Transfusion Reactions: Previous Problems w/ Anesthesia, Motion Sickness Additional Past Anesthesia/Blood Transfusion Reaction / Comment(s): Luminal and Sublimase causes hives Smoking Status: Current every day smoker - Past Family History Mother Family Medical History: No Reported History Medications and Allergies Home Medications Medication Instructions Recorded Confirmed Type Aspirin 81 mg PO DAILY 12/26/13 06/30/21 History Simvastatin [Zocor] 20 mg PO HS 12/26/13 06/30/21 History Hyoscyamine Sulfate [Levbid] 0.375 mg PO AC-BID 02/28/18 06/30/21 History Omeprazole [PriLOSEC] 40 mg PO DAILY #14 capsule. 02/28/18 06/30/21 Rx lisinopriL [Zestril] 5 mg PO DAILY 02/28/18 06/30/21 History Allergies Allergy/AdvReac Type Severity Reaction Status Date / Time fentanyl citrate Allergy Rash/Hives Verified 06/30/21 14:33 [From Sublimaze (PF)] morphine Allergy severe pain Verified 06/30/21 14:33 phenobarbital [From Luminal] Allergy Rash/Hives Verified 06/30/21 14:33 phenobarbital sodium Allergy Rash/Hives Verified 06/30/21 14:33 [From Luminal]
[~2021-07-01 10:54] MED LIST changes: +LIDOCAINE 1% (10MG/ML) FOR IV START INTRADERMA PRN
[2021-07-01 11:21] VITALS: RESP 16; TEMP 97.6
[2021-07-01] MEDS ORDERED: LIDOCAINE 1% INJ 10MG/ML (20 ML MDV) ONE (12:10)
[2021-07-01] MEDS ORDERED: PROPOFOL 10 MG/ML 20 ML VIAL IV ONE (12:10)
--- NOTE | 2021-07-01 12:40 | P.PCN ---
Date of Procedure: 07/01/21 Description of Procedure: PREOPERATIVE DIAGNOSIS: Gastroesophageal reflux disease. Epigastric abdominal pain POSTOPERATIVE DIAGNOSIS: Duodenitis Gastritis. Gastroesophageal reflux disease. Diaphragmatic hiatal hernia OPERATION: Esophagogastroduodenoscopy with biopsies along antrum, duodenal SURGEON: Wanda Franco MD ANESTHESIA: MAC. INDICATIONS: The patient is a 66-year-old female who presents with a history of reflux disease. Benefits and risks of the procedure were described. Informed consent was obtained. DESCRIPTION: The patient was brought into the endoscopy suite and laid in the left lateral decubitus position. An Olympus gastroscope was passed along the posterior oropharynx down to the distal esophagus where the squamocolumnar junction was encountered at 40 cm from the incisors. The stomach was entered and no bile reflux was found. Additional findings are listed below. Biopsies with cold forceps were obtained of the antrum. The first through third portion of the duodenum was examined and cold forceps biopsies obtained for duodenitis. Retroflexion of the scope confirmed Hill grade 3 lower esophageal valve. The squamocolumnar junction demonstrated LA grade B erosive esophagitis. The stomach was desufflated. The patient tolerated the procedure well. FINDINGS: Squamocolumnar junction 35 cm from the incisors. Diaphragmatic hiatus at 36 cm. Hiatal hernia, 1 cm Hill grade 4 lower esophageal valve. LA grade B erosive esophagitis. Cold biopsies forceps obtained for duodenitis Chronic gastritis RECOMMENDATIONS: 1. Upper endoscopy as needed. 2. Omeprazole 40 mg daily for 2 weeks 3. Carafate 1 g twice a day for 2 weeks Plan - Discharge Summary Discharge Rx Participant: No New Discharge Prescriptions: New Sucralfate [Carafate] 1 gm PO BID #30 tablet Omeprazole [PriLOSEC] 40 mg PO DAILY #14 cap Continue Simvastatin [Zocor] 20 mg PO HS Aspirin 81 mg PO DAILY lisinopriL [Zestril] 5 mg PO DAILY Hyoscyamine Sulfate [Levbid] 0.375 mg PO AC-BID Omeprazole [PriLOSEC] 40 mg PO DAILY #14 capsule.dr Discharge Medication List Aspirin 81 mg PO DAILY 12/26/13 [History] Simvastatin [Zocor] 20 mg PO HS 12/26/13 [History] Hyoscyamine Sulfate [Levbid] 0.375 mg PO AC-BID 02/28/18 [History] Omeprazole [PriLOSEC] 40 mg PO DAILY #14 capsule. 02/28/18 [Rx] lisinopriL [Zestril] 5 mg PO DAILY 02/28/18 [History] Omeprazole [PriLOSEC] 40 mg PO DAILY #14 cap 07/01/21 [Rx] Sucralfate [Carafate] 1 gm PO BID #30 tablet 07/01/21 [Rx] Follow up Appointment(s)/Referral(s): Wanda Franco MD [STAFF PHYSICIAN] - 07/16/21 Patient Instructions/Handouts: Hiatal Hernia (DC), Diet for Stomach Ulcers and Gastritis (GEN) Discharge Disposition: HOME SELF-CARE
[2021-07-01 13:00] VITALS: BP 120/72; PULSE 46
== END 2021-07-01 13:00 | disposition home or self-care (01) ==
LOC: ORWHC2ENDO 10:54
PROVIDERS: ATTEND Surgery Plastic and Reconstructive Surgery
DX: K29.80 Duodenitis without bleeding (principal); K29.70 Gastritis, unspecified, without bleeding; K21.9 Gastro-esophageal reflux disease without esophagitis; K44.9 Diaphragmatic hernia without obstruction or gangrene; F17.200 Nicotine dependence, unspecified, uncomplicated
CPT/HCPCS: 43239; J2001; J2704; 88305

== ENCOUNTER → 2021-09-11 | Outpatient (CLI) | payer BC ==
--- NOTE | 2021-09-11 11:41 | NM ---
EXAMINATION TYPE: NM hepatobiliary w CCK DATE OF EXAM: 09/11/2021 COMPARISON: NONE HISTORY: pain TECHNIQUE: After the intravenous administration of 4.9 mCi Tc 99m Mebrofenin hepatobiliary scintigrap hy is performed. Immediate images post injection. FINDINGS: There is satisfactory initial accumulation of tracer by the liver. The gallbladder is visualized wit hin 14minutes. The small bowel activity is noted within 18minutes. At one hour CCK was administered , patient was injected with 1.2 mcg of Kinevac, and gallbladder ejection fraction is calculated at 95 %. IMPRESSION: 1. Consider hypercontractile state.
== END | disposition home or self-care (01) ==
LOC: RADNMMAIN 06:56
PROVIDERS: ATTEND Surgery Plastic and Reconstructive Surgery
DX: K44.9 Diaphragmatic hernia without obstruction or gangrene (principal); K80.10 Calculus of gallbladder with chronic cholecystitis without obstruction
CPT/HCPCS: 78227; A9537; J2805

== ENCOUNTER → 2021-09-15 | Outpatient (CLI) | payer BC ==
--- NOTE | 2021-09-16 07:27 | US ---
EXAMINATION TYPE: US gallbladder DATE OF EXAM: 09/15/2021 COMPARISON: US 05/26/2017, CT 09/14/2017, NM 09/11/2021 CLINICAL HISTORY: K80.10 CALCULUS OF GALLBLADDER W CHRONIC CHOLECYST. EXAM MEASUREMENTS: Liver Length: 10.6 cm Gallbladder Wall: 0.3 cm CBD: 0.4 cm Right Kidney: 9.8 x 3.7 x 4.7 cm Patient's pain is midline, epigastric area. Pancreas: wnl Liver: wnl Gallbladder: No stones seen Evidence for sonographic Canales's sign: No CBD: wnl Right Kidney: No hydronephrosis or masses seen IMPRESSION: No distinct abnormality appreciated.
== END | disposition home or self-care (01) ==
LOC: RADUSWWP 16:14
PROVIDERS: ATTEND Surgery Plastic and Reconstructive Surgery
DX: K44.9 Diaphragmatic hernia without obstruction or gangrene (principal); K80.10 Calculus of gallbladder with chronic cholecystitis without obstruction
CPT/HCPCS: 76705

== ENCOUNTER 2021-10-08 11:26 | Day surgery (SDC) | payer BC ==
[2021-10-06 14:31] VITALS: BMI 23.9
--- NOTE | 2021-10-08 10:41 | P.GSHP ---
History of Present Illness H&P Date: 10/08/21 CHIEF COMPLAINT: Cholecystitis HISTORY OF PRESENT ILLNESS: The patient is a 66-year-old female who presents with history of epigastric including right upper quadrant abdominal pain. She underwent diagnostic studies for her gallbladder. Separately her clinical picture was consistent with cholecystitis. Now she presents for surgical intervention. PAST MEDICAL HISTORY: Please see list PAST SURGICAL HISTORY: Please see list MEDICATIONS: Please see list ALLERGIES: Please see list SOCIAL HISTORY: Please see list FAMILY HISTORY: Please see list REVIEW OF ORGAN SYSTEMS: CONSTITUTIONAL: No reports of fevers or chills. HEENT: Denies any troubles with the vision or hearing. PHYSICAL EXAM: VITAL SIGNS: Afebrile vital signs stable GENERAL: Well-developed pleasant in no acute distress. HEENT: No scleral icterus. Extraocular movements grossly intact. Moist buccal mucosa. NECK: Supple without lymphadenopathy. CHEST: Unlabored respirations. Equal bilateral excursions. CARDIOVASCULAR: Regular rate regular rhythm rhythm. Distal 2+ pulses. ABDOMEN: Soft, nondistended. Tender along the epigastrium and right upper quadrant. MUSCULOSKELETAL: No clubbing, cyanosis, or edema. NEURO: Cranial nerves II to XII within normal limits. No focal or lateralizing signs. PSYCH: Alert and oriented to person, place and time. SKIN: Well-perfused good skin turgor. ASSESSMENT: 1. Epigastric and right upper quadrant abdominal pain 2. Chronic cholecystitis 3. Symptomatic gallstones. PLAN: 1. Will need a robotic cholecystectomy possible open. Benefits and risks were described. 2. Heparin for DVT prophylaxis 5000 units. 3. Antibiotic prophylaxis. Past Medical History Past Medical History: Hyperlipidemia, Hypertension, Osteoarthritis (OA) Additional Past Medical History / Comment(s): Right Bundle Branch Block years ago, no problems or concerns. Dizzy spells @ times. History of Any Multi-Drug Resistant Organisms: None Reported Past Surgical History: Appendectomy, Section, Heart Catheterization, Tonsillectomy Additional Past Surgical History / Comment(s): Right knee lateral release, nasal surgery for deviated septum. Past Anesthesia/Blood Transfusion Reactions: Previous Problems w/ Anesthesia, Motion Sickness Additional Past Anesthesia/Blood Transfusion Reaction / Comment(s): Luminal and Sublimase causes hives. Past Psychological History: No Psychological Hx Reported Smoking Status: Current every day smoker Past Alcohol Use History: None Reported Additional Past Alcohol Use History / Comment(s): Smokes 1/2 PPD, "for many, many yrs." Past Drug Use History: None Reported - Past Family History Mother Family Medical History: No Reported History Medications and Allergies Home Medications Medication Instructions Recorded Confirmed Type Aspirin 81 mg PO DAILY 12/26/13 10/06/21 History Simvastatin [Zocor] 20 mg PO HS 12/26/13 10/06/21 History lisinopriL [Zestril] 5 mg PO QAM 02/28/18 10/06/21 History Allergies Allergy/AdvReac Type Severity Reaction Status Date / Time fentanyl citrate Allergy Rash/Hives Verified 10/06/21 14:16 [From Sublimaze (PF)] morphine Allergy severe pain Verified 10/06/21 14:16 phenobarbital [From Luminal] Allergy Rash/Hives Verified 10/06/21 14:16 phenobarbital sodium Allergy Rash/Hives Verified 10/06/21 14:16 [From Luminal]
[~2021-10-08 11:26] MED LIST changes: +ACETAMINOPHEN TAB 500 MG TAB PO PRN; +DEXAMETHASONE SOD PHOSPHATE 4 MG/ML 1 ML VIAL IV ONE; +HEPARIN SODIUM,PORCINE/PF 5,000 UNIT/0.5 ML SYRINGE SQ PRN; +INDOCYANINE GREEN 25 MG VIAL IV STA; +MELOXICAM 7.5 MG TAB PO PRN; +MIDAZOLAM 2 MG/2 ML VIAL IV PRN; +ONDANSETRON 4 MG/2 ML VIAL IVP ONE; +SCOPOLAMINE 1.5MG/72HR PATCH TRANSDERM PRN
[2021-10-08 12:11] LABS: Basophils # (A) 0.1 k/uL (0-0.2); Basophils % (A) 1 %; Eosinophils # (A) 0.2 k/uL (0-0.7); Eosinophils % (A) 2 %; HCT 45.5 % (34.0-46.0); HGB 15.3 gm/dL (11.4-16.0); Lymphocytes # (A) 2.2 k/uL (1.0-4.8); Lymphocytes % (A) 22 %; MCH 33.7 pg (25.0-35.0); MCHC 33.7 g/dL (31.0-37.0); MCV 99.9 fL (80.0-100.0); Mean Platelet Volume 8.3; Monocytes # (A) 0.4 k/uL (0-1.0); Monocytes % (A) 4 %; Neutrophils % (A) 70 %; Platelet Count 229 k/uL (150-450); RBC 4.55 m/uL (3.80-5.40); RDW 13.8 % (11.5-15.5); WBC 10.1 k/uL (3.8-10.6)
[2021-10-08] MEDS ORDERED: INDOCYANINE GREEN 25 MG VIAL IV ONE (13:05)
[2021-10-08] MEDS ORDERED: ROCURONIUM 10 MG/ML (5 ML VIAL) IV ONE (13:05)
[2021-10-08] MEDS ORDERED: LIDOCAINE 1% INJ 10MG/ML (20 ML MDV) ONE (13:05)
[2021-10-08] MEDS ORDERED: ePHEDrine 50 MG/ML 1 ML VIAL ONE (13:05)
[2021-10-08] MEDS ORDERED: diphenhydrAMINE 50 MG/ML 1 ML VIAL ONE (13:05)
[2021-10-08] MEDS ORDERED: SUGAMMADEX SODIUM 500 MG/5 ML SDV IV ONE (13:05)
[2021-10-08] MEDS ORDERED: MIDAZOLAM 2 MG/2 ML VIAL ONE (13:05)
[2021-10-08] MEDS ORDERED: SUCCINYLCHOLINE CHLORIDE 100 MG/5 ML SYR IV ONE (13:05)
[2021-10-08] MEDS ORDERED: PROPOFOL 10 MG/ML 20 ML VIAL IV ONE (13:05)
[2021-10-08] MEDS ORDERED: HYDROmorphone (PF) 1 MG/ML ONE (13:05)
[2021-10-08 13:14] LABS: Albumin 4.4 g/dL (3.5-5.0); Calcium 9.3 mg/dL (8.4-10.2); Potassium 4.3 mmol/L (3.5-5.1); Total Bilirubin 0.8 mg/dL (0.2-1.3); Total Protein 7.6 g/dL (6.3-8.2)
[2021-10-08] MEDS ORDERED: BUPIVACAIN-EPI 0.25%-1:200,000 30 ML VIAL SQ ONE (13:40)
--- NOTE | 2021-10-08 14:18 | P.OP ---
Date of Procedure: 10/08/21 Description of Procedure: SURGEON: WANDA FRANCO MD PREOPERATIVE DIAGNOSES: 1. Chronic cholecystitis 2. Right upper quadrant abdominal pain 3. Hypertensive heart disease 4. Hyperlipidemia POSTOPERATIVE DIAGNOSES: 1. Chronic cholecystitis 2. Right upper quadrant abdominal pain 3. Hypertensive heart disease 4. Hyperlipidemia OPERATION: Robotic-assisted da Geri Xi laparoscopic cholecystectomy, multiport with FIREFLY ESTIMATED BLOOD LOSS: 10 mL. SPECIMENS REMOVED: Gallbladder. COMPLICATIONS: None. OPERATIVE FINDINGS: 1. Moderately distended gallbladder with abnormal fundus and redundancy of infundibulum 2. Mildly dilated common bile INDICATIONS: The patient is a 66-year-old female who presents with symptomatic gallstones. Robotic assisted laparoscopic approach was described. Benefits and risks of the procedure including but not limited to bleeding, infection, injury to the biliary tree was described. Informed consent was obtained. DESCRIPTION OF PROCEDURE: Patient was brought to the operating room, placed in supine position. After general induction, the abdomen had been prepped and draped in standard sterile fashion. The robotic da Geri XI system was primed. After a timeout protocol was performed, the patient had been prepped and draped in standard sterile fashion. The patient was injected with indocyanine green. A 5 mm 0 degrees laparoscopic trocar entry was performed along the left upper quadrant. The abdomen insufflated to 15 mmHg pressure which was tolerated well. Diagnostic laparoscopy demonstrated no injury to bowel viscera or mesentery. The liver surface was unremarkable. Next, two 8 mm robotic ports were placed along the right upper abdomen. The camera 8-mm port was maintained along the epigastrium. Another 8 mm port was placed along the left upper abdominal wall after exchanging the 5 mm port. Please note that the ports were placed at least 10 to 15 cm away from the target anatomy of the gallbladder. The robot was docked along the left lateral abdomen. The patient was repositioned in reverse Trendelenburg position. Using a grasper for arm 3, a grasper for arm 4, including hook cautery for arm 1, the robotic system was docked and primed as described. Instruments were interchanged by the commercial lending assistant including hook cautery, Bovie cautery and clip appliers. I had sat at the console. Next attention was brought to the infundibulum and cystic structures. The infundibulum and cystic duct were dissected free from surrounding tissues. The cystic duct was isolated. FIREFLY was used to identify the cystic artery and cystic structures. A critical view of safety was obtained. Large PLASTIC clips were used throughout the entire case. Using a clip dormitory maid, 2 clips were placed at the junction of the infundibulum and cystic duct. The cystic duct was divided between clips. Next, the cystic artery was similarly clipped and cauterized. Electro-Bovie cautery was used to remove the gallbladder from the hepatic fossa. Hemostasis was checked and found to be adequate. The robot was undocked. I re-scrubbed into the case. Using a 10 mm Endo Catch bag via the left upper quadrant incision, the specimen was removed from the abdominal cavity. All pneumoperitoneum instruments were evacuated from the abdominal cavity. The incisions were reapproximated using 4-0 Monocryl in an interrupted subcuticular fashion. Fascial defects were less than 8 mm in size. Please note along the trocar sites, local anesthetic was placed as a field block prior to insertion of all instruments. Liquid glue was applied to the skin. At the end of the procedure needle, sponge, and instrument count had been verified correct by the surgical instrument mechanic. The patient was transferred to postanesthesia care unit in stable condition. Intraoperative films were shared with the patient's family. Plan - Discharge Summary Discharge Rx Participant: Yes New Discharge Prescriptions: New Simethicone [Gas-X] 125 mg PO AC-TID PRN #20 capsule PRN Reason: Pain Ibuprofen [Motrin] 600 mg PO Q8HR PRN #30 tab PRN Reason: Pain Acetaminophen Tab [Tylenol Tab] 1,000 mg PO Q6HR PRN #30 tablet PRN Reason: Pain Continue Simvastatin [Zocor] 20 mg PO HS Aspirin 81 mg PO DAILY lisinopriL [Zestril] 5 mg PO QAM Discharge Medication List Aspirin 81 mg PO DAILY 12/26/13 [History] Simvastatin [Zocor] 20 mg PO HS 12/26/13 [History] lisinopriL [Zestril] 5 mg PO QAM 02/28/18 [History] Acetaminophen Tab [Tylenol Tab] 1,000 mg PO Q6HR PRN #30 tablet 10/08/21 [Rx] Ibuprofen [Motrin] 600 mg PO Q8HR PRN #30 tab 10/08/21 [Rx] Simethicone [Gas-X] 125 mg PO AC-TID PRN #20 capsule 10/08/21 [Rx] Follow up Appointment(s)/Referral(s): Wanda Franco MD [STAFF PHYSICIAN] - 10/13/21 (Telehealth) Patient Instructions/Handouts: *[facility] - Laparoscopic Cholecystectomy Discharge Instructions, Low Fat Diet (DC), *[facility] - Managing Your Pain After Surgery Without Opioids Activity/Diet/Wound Care/Special Instructions: Recommend low-fat diet for the next 2 days. No lifting over 10 pounds in 2 weeks until October 22. May shower. No bath tub soaks for two weeks until October 22. Diet as tolerated. Use Tylenol, simethicone and ibuprofen or Aleve scheduled for the next 24-48 hours for best pain relief. Use ice along incisions for today to prevent swelling. Discharge Disposition: HOME SELF-CARE
[2021-10-08 14:32] VITALS: TEMP 97.7
[2021-10-08 14:40] VITALS: RESP 16
[2021-10-08] MEDS: HYDROmorphone 0.5 MG/0.5 ML SYRINGE IVP PRN ×3 (14:47→15:36)
[2021-10-08] MEDS ORDERED: LACTATED RINGERS 1,000 ML IV ONE (15:35)
[2021-10-08 16:36] VITALS: BP 128/71; PULSE 72
[2021-10-08] MEDS ORDERED: ONDANSETRON 4 MG/2 ML VIAL IVP ONE (16:47)
[2021-10-08] MEDS ORDERED: ONDANSETRON 4 MG/2 ML VIAL ONE (16:49)
== END 2021-10-08 16:57 | disposition home or self-care (01) ==
LOC: OR 11:26
PROVIDERS: ATTEND Surgery Plastic and Reconstructive Surgery
DX: K81.1 Chronic cholecystitis (principal); K81.0 Acute cholecystitis; I11.9 Hypertensive heart disease without heart failure; E78.5 Hyperlipidemia, unspecified; M19.90 Unspecified osteoarthritis, unspecified site; Z90.49 Acquired absence of other specified parts of digestive tract; Z98.891 History of uterine scar from previous surgery; Z98.890 Other specified postprocedural states; F17.210 Nicotine dependence, cigarettes, uncomplicated; Z79.82 Long term (current) use of aspirin; Z79.899 Other long term (current) drug therapy; Z88.4 Allergy status to anesthetic agent; Z88.5 Allergy status to narcotic agent; Z88.8 Allergy status to other drugs, medicaments and biological substances
CPT/HCPCS: 47563; S2900; 80053; 85025; 88304

== ENCOUNTER → 2023-08-26 | Day surgery (SDC) | payer BC ==
[2023-08-22 14:24] VITALS: BMI 24.7
[~2023-08-26] MED LIST changes: -ACETAMINOPHEN TAB 500 MG TAB PO PRN; +BENZOCAINE SPRAY 1 CAN TOPICAL ONE; -DEXAMETHASONE SOD PHOSPHATE 4 MG/ML 1 ML VIAL IV ONE; -HEPARIN SODIUM,PORCINE/PF 5,000 UNIT/0.5 ML SYRINGE SQ PRN; -INDOCYANINE GREEN 25 MG VIAL IV STA; +IV FLUID CONTINUATION 950 ML IV ONE; -LACTATED RINGERS 1,000 ML IV SCH; -LIDOCAINE 1% (10MG/ML) FOR IV START INTRADERMA PRN; -MELOXICAM 7.5 MG TAB PO PRN; -MIDAZOLAM 2 MG/2 ML VIAL IV PRN; +MIDAZOLAM 2 MG/2 ML VIAL IVP ONE; -ONDANSETRON 4 MG/2 ML VIAL IVP ONE; -SCOPOLAMINE 1.5MG/72HR PATCH TRANSDERM PRN; +SODIUM CHLORIDE 0.9% 500 ML 500 ML IV ONE; +fentaNYL (PF) 50 MCG/ML 2 ML AMP ONE
[2023-08-26 11:20] VITALS: TEMP 97
[2023-08-26 12:32] VITALS: RESP 14
--- NOTE | 2023-08-26 13:25 | P.TEE ---
Date of Procedure: 08/26/23 Description of Procedure(s): Procedure performed: 1. Transesophageal Echocardiogram with color flow doppler, pulsed wave doppler and continuous wave doppler 2. Moderate conscious sedation. Sedation time 14 mins. 3. Bubble Study Indications: Workup for cryptogenic stroke. Patient had a recent CVA 2. Her initial heart monitor and echocardiogram did not show any cardiovascular etiology of her stroke. Neurology is wanted to get up. Bubble study to evaluate if there is any [id number] intracardiac shunt. For this a KYLAH was performed Consent: I have discussed the risks, benefits and alternative therapies for the above-mentioned procedure. The patient has indicated understanding and acceptance of the risks of the procedure. Signed consent was obtained and was placed in the paper chart. Procedural Steps: Timeout was performed in usual fashion. Patient's heart rate, blood pressure, oxygen saturation and ECG were monitored. Benzocaine was sprayed liberally in the back of the throat. Bite block was placed between the jaw. 4 mg of Versed IV. Patient is ALLERGIC to fentanyl. After achieving appropriate moderate conscious sedation, KYLAH probe was advanced without difficulty and without any immediate complications to the esophagus. KYLAH study was performed with color flow doppler, pulsed wave doppler and continuous wave doppler. Agitated saline bubbles were injected to assess for any intra-atrial shunt. The probe was then removed. Patient tolerated the procedure well. Patient was transferred to the post procedure area in stable and satisfactory condition. Throughout the procedure patient's heart rate, blood pressure, oxygen saturation and ECG were monitored. Total sedation time 14 mins. Complications: none FINDINGS Left Atrium: Normal Left atrial size. No evidence of mass or thrombus seen Left Atrial Appendage: No evidence of thrombus or mass seen in FAITH Inter atrial septum: Intact inter-atrial septum with no evidence of atrial septal defect or patent foramen ovale. No evidence of [id number] intracardiac shunting with bubble study Left Ventricle: Normal global LV size and systolic function Right Atrium: Normal overall RV size Right Ventricle: Normal global RV size and systolic function Aortic Valve: Structurally normal Trileaflet, no significant calcification. No significant stenosis or regurgitation on color doppler assessment. Mitral Valve: Struturally normal. Mild functional MR. Pulmonic Valve: Not well visualized. Tricuspid Valve: Structurally normal. Ascending aorta, Aortic root and Aortic arch: Normal size aortic root. Ascending aorta measuring at 3.4 cm Descending aorta: Diffuse Calcific plaques 2 mm noticed in descending aorta CONCLUSION: No evidence of [id number] and a cardiac shunt on bubble study. No evidence of intracardiac thrombus. No evidence of thrombus in LAD or left atrial appendage No significant aortic valve disease. Normal size aortic root. Mild functional MR Calcific plaque noticed in descending aorta
[2023-08-26 14:34] VITALS: BP 146/82; PULSE 46
== END ==
LOC: CATHCVL 10:15
PROVIDERS: ATTEND Student in an Organized Health Care Education/Training Program
DX: I34.0 Nonrheumatic mitral (valve) insufficiency (principal); I10 Essential (primary) hypertension; E78.5 Hyperlipidemia, unspecified; F17.210 Nicotine dependence, cigarettes, uncomplicated; Z79.82 Long term (current) use of aspirin; Z79.899 Other long term (current) drug therapy
CPT/HCPCS: 93312; 93320; 93325; J2250

== ENCOUNTER → 2024-07-03 | Outpatient (CLI) | payer BC ==
--- NOTE | 2024-07-04 17:13 | MM ---
Reason for Exam: Screening (asymptomatic). Last mammogram was performed 6 year(s) and 0 month(s) ago. Patient History: Menarche at age 14. First Full-Term at age 27. Postmenopausal. Paternal aunt had breast cancer. Risk Values: Gloria 5 year model risk: 1.9%. NCI Lifetime model risk: 6.4%. Prior Study Comparison: 11/15/2014 Bilateral Screening Mammogram, [facility]. 05/26/2017 Bilateral Screening Mammogram, [facility]. 06/28/2018 Bilateral Screening Mammogram, [facility]. Tissue Density: There are scattered areas of fibroglandular density. Findings: Analyzed By CAD. There is no suspicious group of microcalcifications or new suspicious mass in either breast. Overall Assessment: Negative, BI-RAD 1 Management: Screening Mammogram of both breasts in 1 year. Patient should continue monthly self-breast exams. A clinical breast exam by your physician is recommended on an annual basis. This exam should not preclude additional follow-up of suspicious palpable abnormalities. Note on Gloria scores and lifetime risk: 1. A Gloria score greater than 3% is considered moderate risk. If this is the case, consider specialist referral to assess eligibility for a risk reducing agent. 2. If overall lifetime risk for the development of breast cancer is 20% or higher, the patient may qualify for future screening with alternating mammogram and breast MRI. [facility], , 07/04/2024 5:08 PM. Electronically signed and approved by: Tabatha Chester M.D. Radiologist
== END | disposition home or self-care (01) ==
LOC: RADMAMWWP 11:53
PROVIDERS: ATTEND Family Medicine
DX: Z12.31 Encounter for screening mammogram for malignant neoplasm of breast (principal); Z78.0 Asymptomatic menopausal state; Z80.3 Family history of malignant neoplasm of breast; R92.323 Mammographic fibroglandular density, bilateral breasts
CPT/HCPCS: 77063; 77067

== ENCOUNTER → 2024-08-28 | Outpatient (CLI) | payer BC ==
--- NOTE | 2024-08-28 20:48 | MR ---
EXAMINATION TYPE: MR thoracic spine wo con DATE OF EXAM: 08/28/2024 8:28 PM COMPARISON: None. CLINICAL INDICATION: Female, 69 years old with history of M51.34,M54.14,R10.10, mid back pain, pain u nder ribs in front and back TECHNIQUE: Multi planar, multi sequence imaging was performed utilizing: T1-weighted, short-tau inver soila recovery and T2-weighted of the thoracic spine. IV Contrast: mL (None, if empty) FINDINGS: Alignment: Alignment is within normal limits. Vertebral bodies have preserved heights. Spinal cord: Spinal cord is within normal limits for signal. Discs: Scattered disc desiccation. T8-T9 central disc bulge/protrusion which mildly impresses upon th e spinal cord. No significant spinal canal or neural foraminal stenosis. No evidence of significant s shekhar canal or neural foraminal stenosis. There is no evidence of extradural defects or central spina l canal narrowing at any thoracic vertebral body level Osseous structures: No abnormal bony edema on inversion recovery sequences. Multilevel osteophyte for mation and facet joint arthropathy. Scattered disc space narrowing. No abnormal bony edema on inversi on recovery sequences IMPRESSION: 1. No evidence for spinal fracture. 2. T8-T9 central disc bulge/protrusion which mildly impresses upon the spinal cord. 3. 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 [facility], , 08/28/2024 8:45 PM
== END | disposition home or self-care (01) ==
LOC: RADMRIMAIN 18:46
PROVIDERS: ATTEND Family Medicine
DX: M51.14 Intervertebral disc disorders with radiculopathy, thoracic region (principal); M47.24 Other spondylosis with radiculopathy, thoracic region
CPT/HCPCS: 72146